=== PATIENT | female | born 1980 | race Caucasian/White ===

== ENCOUNTER 2017-11-18 12:12 | Emergency (ER) | payer OTHER ==
[~2017-11-18] VITALS: Ht 149.9 cm; Wt 52.0 kg
[2017-11-18] MEDS ORDERED: KETOROLAC 60MG/2ML VIAL IM ONE (14:15)
[2017-11-18 16:12] VITALS: BP 127/75
== END 2017-11-18 16:15 | disposition home or self-care (01) ==
LOC: ER 12:12
DX: S20.212A Contusion of left front wall of thorax, initial encounter (principal); V43.62XA Car passenger injured in collision with other type car in traffic accident, initial encounter; Y93.9 Activity, unspecified; Y92.410 Unspecified street and highway as the place of occurrence of the external cause
CPT/HCPCS: 71101; 81025; 96372; 99284; J1885; Z7610

== ENCOUNTER 2018-10-07 03:13 | Observation (INO) | payer OTHER ==
[~2018-10-07] VITALS: Ht 149.9 cm; Wt 70.3 kg
== END 2018-10-07 04:15 | disposition home or self-care (01) ==
LOC: 8 EST LDRP 03:13
PROVIDERS: ADMIT Obstetrics & Gynecology; ATTEND Obstetrics & Gynecology
DX: O26.892 Other specified pregnancy related conditions, second trimester (principal); R10.13 Epigastric pain; R07.2 Precordial pain; Z3A.19 19 weeks gestation of pregnancy
CPT/HCPCS: G0378

== ENCOUNTER 2018-10-07 04:23 | Emergency (ER) | payer OTHER ==
[~2018-10-07] VITALS: Ht 149.9 cm; Wt 71.0 kg
[2018-10-07] MEDS ORDERED: ONDANSETRON HCL 4MG/2ML INJ IV STA (04:57)
[2018-10-07] MEDS ORDERED: SODIUM CHLORIDE 0.9% 1,000 ML IV ONE (04:57)
[2018-10-07 05:16] LABS: BASOPHILS % 0.4 % (0.0-2.0); EOSINOPHILS % 0.7 % (0.0-5.0); HEMATOCRIT. 30.7 % (36.0-48.0); HEMOGLOBIN. 10.4 g/dL (12.0-16.0); MEAN CORPUSCULAR HEMOGLOBIN 28.6 pg (28.0-32.0); MEAN CORPUSCULAR VOLUME 84.3 fL (81.0-99.0); MEAN PLATELET VOLUME 8.3 fl (7.4-10.4); MONOCYTES % 6.2 % (2.0-8.0); NEUTROPHILS % 79.7 % (40.0-76.0); PLATELET 233 x1000/uL (130-400); RED BLOOD CELL COUNT 3.64 mill/uL (4.2-5.4); RED CELL DISTRIBUTION WIDTH 13.7 % (11.6-14.6)
[2018-10-07 05:23] LABS: CHLORIDE 108 mEq/L (98-107)
[2018-10-07 05:43] LABS: CLARITY URINE CLOUDY (CLEAR); COLOR URINE YELLOW (YELLOW); KETONES URINE NEGATIVE (NEGATIVE); LEUKOCYTE ESTERASE URINE TRACE (NEGATIVE); NITRITE URINE NEGATIVE (NEGATIVE); OCCULT BLOOD URINE TRACE (NEGATIVE); PH URINE 6.5 (4.5-8.0); PROTEIN URINE NEGATIVE (NEGATIVE); SPECIFIC GRAVITY URINE 1.013 (1.005-1.030)
[2018-10-07 07:20] VITALS: BP 95/61
== END 2018-10-07 07:21 | disposition left against medical advice (07) ==
LOC: ER 04:23
DX: O26.892 Other specified pregnancy related conditions, second trimester (principal); O21.8 Other vomiting complicating pregnancy; R10.9 Unspecified abdominal pain; Z3A.20 20 weeks gestation of pregnancy
CPT/HCPCS: 36415; 76705; 76815; 80053; 81003; 83690; 84702; 85025; 96360; 96361; 99284; J7030